=== PATIENT | female | born 1970 | race Caucasian/White ===

== ENCOUNTER 2018-02-25 15:50 | Emergency (ER) | payer OTHER ==
[2018-02-25] MEDS: IBUPROFEN 600 MG TAB PO (18:46)
== END 2018-02-25 20:51 | disposition home or self-care (01) ==
LOC: FTE 15:50
DX: S62.111A Displaced fracture of triquetrum [cuneiform] bone, right wrist, initial encounter for closed fracture (principal); S50.811A Abrasion of right forearm, initial encounter; R07.9 Chest pain, unspecified; V49.49XA Driver injured in collision with other motor vehicles in traffic accident, initial encounter
CPT/HCPCS: 29125; 71045; 73030-RT; 73090-RT; 73110-RT; 81025; 93005; 99284-25